=== PATIENT | female | born 1985 | race African-American/Black ===

== ENCOUNTER 2017-10-13 14:57 | Emergency (ER) | payer SELFPAY ==
[~2017-10-13] VITALS: Ht 157.5 cm; Wt 70.0 kg
[~2017-10-13 14:57] MED LIST: ACET325 PO; IMIT25TA PO
[2017-10-13 15:11] VITALS: BP 126/58; PULSE 81; RESP 16; TEMP 98.7; O2SAT 98
[2017-10-13] MEDS ORDERED: CEPH-460 PO (16:09)
[2017-10-13] MEDS ORDERED: MUPI2OIN TOPICAL (16:09)
--- NOTE | 2017-10-13 16:10 | PD ---
HPI Chief Complaint: Medical Clearance Time Seen by Provider: 15:49 Travel History International Travel<30 days: No Contact w/Intl Traveler<30days: No Traveled to known affect area: No History of Present Illness HPI 32-year-old female presents to the emergency department with complaint of redness, swelling, and pain around her nose into her upper lip area 2-3 days. She thinks it is because she has been wiping her nose because of her allergies. No one else with similar symptoms. Denies fever, vomiting. Reports crusting to the area. Says it is burning in sensation. Symptoms are mild to moderate in severity. Has been using an antifungal/steroid cream and Benadryl for symptom management. Has also tried a topical Neosporin. No improvement in symptoms with treatment. No primary care provider. No known allergies. Denies significant past medical history. Has no other medical complaints. No other modifying factors or associated signs and symptoms. PFSH Past Medical History Medical History: Denies Significant Hx Diminished Hearing: No Headaches: Yes ?: Not : 0 Past Surgical History Surgical History: No Previous Surgery Social History Alcohol Use: No Tobacco Use: No Substance Use: No Allergies-Medications (Allergen,Severity, Reaction): Coded Allergies: No Known Allergies (Verified Adverse Reaction, Unknown, 10/13/17) Reported Meds & Prescriptions Reported Meds & Active Scripts Active Diflucan (Fluconazole) 150 Mg Tab 150 Mg PO ONCE Mupirocin Topical (Mupirocin) 2 % Oint 1 Applic TOPICAL BID 7 Days Keflex (Cephalexin) 500 Mg Cap 500 Mg PO Q6H 7 Days Reported Tylenol (Acetaminophen) 325 Mg Tab 325 Mg PO DIRECTED Imitrex (Sumatriptan Succinate) 25 Mg Tab 25 Mg PO DIRECTED Review of Systems Except as stated in HPI: all other systems reviewed are Neg Physical Exam Narrative GENERAL: Well-nourished, well-developed black female patient, in no acute distress SKIN: Warm and dry. Raised, erythemic to the upper lip and around the nose; multiple small vesicular type lesions noted with honey colored drainage noted to the area. HEAD: Atraumatic. Normocephalic. EYES: Pupils equal and round. No scleral icterus. No injection or drainage. ENT: Mucosa pink and moist. Airway patent. NECK: Trachea midline. CARDIOVASCULAR: Regular rate. RESPIRATORY: No accessory muscle use. GASTROINTESTINAL: Rounded. MUSCULOSKELETAL: No obvious deformities. No clubbing. No cyanosis. No edema. NEUROLOGICAL: Awake and alert. Oriented 3. No obvious cranial nerve deficits. Motor grossly within normal limits. Normal speech. PSYCHIATRIC: Appropriate mood and affect; insight and judgment normal. Data Data Last Documented VS Vital Signs Date Time Temp Pulse Resp B/P (MAP) Pulse Ox O2 Delivery O2 Flow Rate FiO2 10/13/17 15:11 98.7 81 16 126/58 (80) 98 Orders Orders Ed Discharge Order (10/13/17 16:11) Cephalexin (Keflex) (10/13/17 16:15) [facility] Medical Decision Making Medical Screen Exam Complete: Yes Emergency Medical Condition: Yes Medical Record Reviewed: Yes Differential Diagnosis Facial cellulitis, impetigo, irritation Narrative Course 32-year-old female physical exam consistent with possible impetigo. She is afebrile nontoxic pain. Denies fever, vomiting. Keflex and mupirocin topical prescribed for home. Instructed patient to follow up with primary care provider. Patient verbalizes understanding and agreement with treatment plan. Patient is medically cleared and stable for discharge. Discussed reasons to return to the emergency department. Patient agrees with treatment plan. The patients vital signs are stable and the patient is stable for outpatient follow- up and treatment. Patient discharged home, stable and in no acute distress. Diagnosis Primary Impression: Impetigo Referrals: Agency Director Primary Care Physician Patient Instructions: General Instructions, Impetigo (ED) Departure Forms: Tests/Procedures, Work Release Enter return to work date: Oct 15, 2017 Additional Instructions: Soak affected area in warm water or apply wet compresses Apply antibiotic ointment as prescribed Use bandaids over lesions to decrease risk of spreading Wash clothes, linens, and pulse every day and don't share them with anyone else to decrease risk of spreading Wear gloves when applying antibiotic ointment and wash your hands thoroughly afterward Cut fingernails to prevent damage from scratching Wash hands frequently Keep the child home and to follow-up with the photography colorist and are told that the child is not contagious Follow-up with photography colorist Return to the emergency department immediately with worsening of symptoms Med/Other Pt SpecificInfo: Prescription(s) given Scripts Fluconazole (Diflucan) 150 Mg Tab 150 MG PO ONCE for Infection, #1 TAB 0 Refills Prov: Alysha Traylor MD 10/13/17 Mupirocin Topical (Mupirocin Topical) 2 % Oint 1 APPLIC TOPICAL BID for Mgmt Bacterial Infection for 7 Days, #1 TUBE 0 Refills Prov: Liyah Meadows 10/13/17 Cephalexin (Keflex) 500 Mg Cap 500 MG PO Q6H for Infection for 7 Days, #28 CAP 0 Refills Prov: Liyah Meadows 10/13/17 Disposition: 01 DISCHARGE HOME Condition: Stable Liyah Meadows Oct 13, 2017 16:10
[2017-10-13] MEDS ORDERED: CEPHALEXIN MONOHYDRATE 500 MG CAP PO ONE (16:15)
[2017-10-13] MEDS ORDERED: DIFL150T PO (16:36)
== END 2017-10-13 16:58 | disposition home or self-care (01) ==
LOC: NEPD 14:57
DX: L01.00 Impetigo, unspecified (principal)
CPT/HCPCS: 99283